=== PATIENT | female | born 1950 | race Caucasian/White ===

== ENCOUNTER 2024-05-16 08:46 | Outpatient (CLI) | payer MEDICARE | END 2024-05-16 08:47 | disposition home or self-care (01) | LOC: CSHCT 08:46 | PROVIDERS: ATTEND Internal Medicine Pulmonary Disease | DX: D86.0 Sarcoidosis of lung (principal); R06.02 Shortness of breath; J45.901 Unspecified asthma with (acute) exacerbation; R91.8 Other nonspecific abnormal finding of lung field; R94.2 Abnormal results of pulmonary function studies | CPT/HCPCS: 71250; 94060; 94664; 94726; 94729; 94760 ==